=== PATIENT | male | born 1985 | race Asian ===

== ENCOUNTER 2018-09-03 01:02 | Emergency (ER) | payer SELFPAY ==
[~2018-09-03] VITALS: Ht 177.8 cm; Wt 81.6 kg
[~2018-09-03 01:02] MED LIST: NKM
[2018-09-03 01:05] VITALS: BP 137/82
[2018-09-03] MEDS ORDERED: IBUPROFEN600 MG ORAL (01:13)
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
[2018-09-03 01:30] VITALS: BP 137/82
== END 2018-09-03 02:01 | disposition home or self-care (01) ==
LOC: EDBD 01:02 → EMR 01:19
DX: S70.12XA Contusion of left thigh, initial encounter (principal); V43.52XA Car driver injured in collision with other type car in traffic accident, initial encounter; Y92.488 Other paved roadways as the place of occurrence of the external cause; M79.10 Myalgia, unspecified site; F17.200 Nicotine dependence, unspecified, uncomplicated
CPT/HCPCS: 99282; 99283